=== PATIENT | female | born 1940 | race Caucasian/White ===

== ENCOUNTER → 2016-11-01 09:01 | Outpatient (CLI) | payer MEDICARE, BC ==
--- NOTE | 2016-11-04 08:22 | EMG ---
PATIENT:BI KEARNS DATE OF SERVICE: 11/01/16 MEDICAL RECORD: [id number] DATE OF : 38 LOCATION: [facility] ADMISSION DATE: REFERRING PHYSICIAN: JERRI LIANG MD INTERPRETING PHYSICIAN: JERRI LIANG MD DATE OF SERVICE: 11/01/2016 Electroencephalographic Report Referred by myself as an outpatient. DATE OF EXAMINATION: 11/01/2016 ELECTROMYOGRAPHIC DATA: Electromyographic examination is limited to both lower extremities. In the right lower extremity, right peroneal motor stimulation elicits a compound motor action potential with a distal latency of 3.9 milliseconds, peak amplitude of only 800 microvolts and calculated conduction velocity of 28 meters per second. Right tibial motor stimulation elicits a compound motor action potential with a distal latency of 4.2 milliseconds, peak amplitude of 1 millivolts and calculated conduction velocity of 45 meters per second. Antidromic right sural sensory stimulation elicits no reliable response. The right lower extremity H reflex recording at gastrocsoleus is absent. In the left lower extremity, left peroneal motor stimulation elicits a compound motor action potential with a distal latency of 4.6 milliseconds, peak amplitude of only 800 microvolts and calculated conduction velocity of 45 meters per second. Left tibial motor stimulation elicits a compound motor action potential with a distal latency of 5.2 milliseconds, peak amplitude of 2 millivolts and calculated conduction velocity of 50 meters per second. Antidromic left sural sensory stimulation elicits no reliable response. The left lower extremity H reflex recording at gastrocsoleus is absent. Needle electrode examination is limited to both lower extremities as well. Muscles interrogated include the abductor hallucis, extensor digitorum brevis, abductor digiti quinti, tibialis anterior, medial gastrocnemius, vastus lateralis, semitendinosis and gluteus idalia. There is no abnormality of insertional activity and no abnormal spontaneous activity is seen in all muscles interrogated with the exception of a decrease in insertional activity in the intrinsic foot muscles bilaterally. Motor unit potential morphology and the pattern of motor unit potential firing and recruitment demonstrates a decrease in the number of motor units firing at an increased rate consistent with decreased recruitment at the intrinsic foot muscles bilaterally. Motor units in these muscles are also of increased amplitude and duration. INTERPRETATION: Electromyographic examination of both lower extremities is indicative of a diffuse disorder of the lower motor neuron in both lower extremities, moderate in degrees electrically bilaterally, consistent with the diagnosis of a sensory motor peripheral polyneuropathy. 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 There is no electrical evidence of a superimposed cervical radiculopathy or other lesion of the lower motor neuron in both lower extremities at this time. ELECTROMYGRAM/NERVE CONDUCTION [id number] BI KEARNS TRANSINT:[id number] Voice Confirmation ID: [id number] DOCUMENT ID: [id number] JERRI LIANG MD at 0822 CC: [id number] DICTATION DATE: 11/03/16 0738 FACE HARDENER: 11/03/16 0814 DEP CLI 11/01/16 [facility] [address] [place] [address]
== END | disposition home or self-care (01) ==
LOC: D.CN 09-20 09:00
DX: G60.9 Hereditary and idiopathic neuropathy, unspecified (principal); G25.3 Myoclonus

== ENCOUNTER → 2018-03-19 13:34 | Outpatient (CLI) | payer MEDICARE, BC ==
[2018-03-19 14:47] LABS: APPEARANCE CLEAR (CLEAR); BILIRUBIN NEGATIVE (NEGATIVE); COLOR YELLOW (YELLOW); GLUCOSE NEGATIVE (NEGATIVE); KETONE NEGATIVE (NEGATIVE); NITRITE POSITIVE (NEGATIVE); PROTEIN TRACE mg/dL (NEGATIVE); SPECIFIC GRAVITY 1.015 (1.005-1.020); UROBILINOGEN NORMAL (NORMAL)
[2018-03-19 14:53] LABS: BACTERIA MANY /hpf (NONE SEEN); EPITHELIAL CELLS 0-5 /hpf (0-5); RED CELLS - URINE 0-5 /hpf (0-5)
== END | disposition home or self-care (01) ==
LOC: D.LABREF 13:34
PROVIDERS: Family Medicine
DX: N39.0 Urinary tract infection, site not specified (principal)

== ENCOUNTER → 2018-04-09 17:32 | Outpatient (CLI) | payer MEDICARE, BC ==
[2018-04-09 19:25] LABS: APPEARANCE CLEAR (CLEAR); BILIRUBIN NEGATIVE (NEGATIVE); COLOR YELLOW (YELLOW); GLUCOSE NEGATIVE (NEGATIVE); KETONE NEGATIVE (NEGATIVE); NITRITE NEGATIVE (NEGATIVE); PROTEIN NEGATIVE (NEGATIVE); UROBILINOGEN NORMAL (NORMAL)
[2018-04-09 19:27] LABS: BACTERIA FEW /hpf (NONE SEEN); EPITHELIAL CELLS 0-5 /hpf (0-5); RED CELLS - URINE 0-5 /hpf (0-5)
== END | disposition home or self-care (01) ==
LOC: D.LABREF 17:32
PROVIDERS: Family Medicine
DX: N39.0 Urinary tract infection, site not specified (principal)

== ENCOUNTER → 2018-04-30 12:09 | Outpatient (CLI) | payer MEDICARE, BC ==
[2018-04-30 13:42] LABS: APPEARANCE CLOUDY (CLEAR); BACTERIA MANY /hpf (NONE SEEN); BILIRUBIN NEGATIVE (NEGATIVE); COLOR YELLOW (YELLOW); EPITHELIAL CELLS 0-5 /hpf (0-5); GLUCOSE NEGATIVE (NEGATIVE); KETONE NEGATIVE (NEGATIVE); NITRITE POSITIVE (NEGATIVE); PROTEIN TRACE mg/dL (NEGATIVE); SPECIFIC GRAVITY 1.005 (1.005-1.020); UROBILINOGEN NORMAL (NORMAL); WHITE CELLS - URINE >50 /hpf (0-5)
== END | disposition home or self-care (01) ==
LOC: D.LABREF 12:09
PROVIDERS: Family Medicine
DX: N39.0 Urinary tract infection, site not specified (principal)

== ENCOUNTER → 2018-06-15 13:15 | Outpatient (CLI) | payer MEDICARE, BC ==
[2018-06-15 14:05] LABS: INR 1.6 (0.85-1.17); PROTIME 18.5 SECONDS (11.6-15.0)
== END | disposition home or self-care (01) ==
LOC: D.LABREF 13:15
PROVIDERS: Orthopaedic Surgery Adult Reconstructive Orthopaedic Surgery
DX: I48.91 Unspecified atrial fibrillation (principal); Z79.01 Long term (current) use of anticoagulants

== ENCOUNTER 2019-12-07 14:50 | Emergency (ER) | payer MEDICARE, BC ==
[~2019-12-07] VITALS: Ht 144.8 cm; Wt 65.0 kg
[2019-12-07 14:59] VITALS: Ht 144.8 cm; Wt 65.0 kg
[2019-12-07] MEDS ORDERED: ZYLOPRIM100 MG (15:06)
[2019-12-07] MEDS ORDERED: TOPROL XL25 MG (15:07)
[2019-12-07] MEDS ORDERED: PRADAXA75 MG (15:07)
[2019-12-07] MEDS ORDERED: DILANTIN50 MG (15:07)
[2019-12-07 17:32] VITALS: BP 129/62
== END 2019-12-07 17:37 | disposition home or self-care (01) ==
LOC: D.ER 14:50
DX: S00.83XA Contusion of other part of head, initial encounter (principal); R51 Headache; W19.XXXA Unspecified fall, initial encounter; Y93.9 Activity, unspecified; Y92.9 Unspecified place or not applicable; M54.2 Cervicalgia; M25.561 Pain in right knee; M25.511 Pain in right shoulder; M79.18 Myalgia, other site; T14.8XXA Other injury of unspecified body region, initial encounter; E11.40 Type 2 diabetes mellitus with diabetic neuropathy, unspecified; I10 Essential (primary) hypertension; I48.91 Unspecified atrial fibrillation; E07.9 Disorder of thyroid, unspecified